=== PATIENT | male | born 1990 ===

== ENCOUNTER → 2018-08-21 | Outpatient (CLI) | payer BC | LOC: BMCIMAGING 12:47 | PROVIDERS: ATTEND Family Medicine | DX: M25.421 Effusion, right elbow (principal) ==

== ENCOUNTER → 2018-09-02 | Outpatient (CLI) | payer BC | LOC: BMCIMAGING 15:51 | PROVIDERS: ATTEND Physician Assistant | DX: S59.901A Unspecified injury of right elbow, initial encounter (principal); X58.XXXA Exposure to other specified factors, initial encounter; Y92.9 Unspecified place or not applicable; Y93.9 Activity, unspecified ==

== ENCOUNTER → 2018-09-16 | Outpatient (CLI) | payer BC | LOC: BMCIMAGING 16:16 ==